=== PATIENT | male | born 1990 | race Two or more races ===

== ENCOUNTER 2021-04-19 22:39 | Emergency (ER) | payer SELFPAY ==
[~2021-04-19] VITALS: Ht 175.3 cm; Wt 113.4 kg
[2021-04-19] MEDS ORDERED: TDAP [DIPH/PERTUSSIS/TET] 0.5 ML VIAL IM ONE ×2 (23:12→23:30)
[2021-04-19] MEDS ORDERED: IBUPROFEN 400 MG TABLET ONE (23:12)
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
[2021-04-19] MEDS ORDERED: IBUPROFEN 400 MG TABLET PO ONE (23:30)
[2021-04-20] MEDS ORDERED: HYDR-3972 PO (01:59)
[2021-04-20] MEDS ORDERED: HYDROCODONE/APAP 5/325MG TABLET PO ONE (02:00)
[2021-04-20] MEDS ORDERED: HYDROCODONE/APAP 5/325MG TABLET ONE (02:03)
--- NOTE | 2021-04-20 02:23 | NUR ---
Patient discharged to home in stable condition. Written and verbal after care instructions given. Patient verbalizes understanding of instruction. Pt ambulatory w/ a limp but gait is steady
[2021-04-20 02:24] VITALS: BP 140/87
== END 2021-04-20 02:24 | disposition home or self-care (01) ==
LOC: ER 22:44
DX: S82.131A Displaced fracture of medial condyle of right tibia, initial encounter for closed fracture (principal); S62.002A Unspecified fracture of navicular [scaphoid] bone of left wrist, initial encounter for closed fracture; Z79.899 Other long term (current) drug therapy; V49.9XXA Car occupant (driver) (passenger) injured in unspecified traffic accident, initial encounter; Y93.89 Activity, other specified; Y92.410 Unspecified street and highway as the place of occurrence of the external cause; Y99.8 Other external cause status
CPT/HCPCS: 73110; 73700-TC; 90715